=== PATIENT | female | born 1990 | race American Indian/Alaskan Native ===

== ENCOUNTER 2017-08-29 22:49 | Emergency (ER) | payer OTHER ==
[2017-08-30 00:32] LABS: Basophils % (Auto) 0.2 % (0.0-1.8); Eosinophils % (Auto) 0.8 % (0.0-4.3); Hematocrit 34.1 % (30.3-42.9); Mean Corpuscular HGB Conc 32 % (30-34); Mean Corpuscular Volume 79 fl (79-97); Platelet Count 204 K/mm3 (140-440); Red Blood Count 4.32 M/mm3 (3.65-5.03); Red Cell Distribution Width 13.7 % (13.2-15.2); White Blood Count 9.7 K/mm3 (4.5-11.0)
[2017-08-30 00:36] LABS: Mean Corpuscular Hemoglobin 26 pg (28-32)
[2017-08-30 00:48] LABS: Alanine Aminotransferase 8 units/L (7-56); Albumin 3.9 g/dL (3.9-5); Albumin/Globulin Ratio 1.2 %; Alkaline Phosphatase 74 units/L (35-129); Anion Gap 19 mmol/L; BUN/Creatinine Ratio 22; Blood Urea Nitrogen 11 mg/dL (7-17); Calcium 9.4 mg/dL (8.4-10.2); Carbon Dioxide 22 mmol/L (22-30); Chloride 100.4 mmol/L (98-107); Glucose 111 mg/dL (65-100); Lipase 43 units/L (13-60); Potassium 4.1 mmol/L (3.6-5.0); Sodium 137 mmol/L (137-145); Total Protein 7.2 g/dL (6.3-8.2)
--- NOTE | 2017-08-30 02:04 | Ultrasound Report ---
FINAL REPORT PROCEDURE: US OB > = 14 WEEKS FETUS TECHNIQUE: Real-time transabdominal sonography of the uterus, placenta, amniotic fluid, adnexa, and fetus was performed with image documentation. Measurements were obtained to determine age/size. M-mode Doppler was used to document heartbeat. CPT 60370 HISTORY: vaginal bleeding COMPARISON: No prior studies are available for comparison. FINDINGS: ADDITIONAL GESTATION: None. GENERAL: IUP: Single living intrauterine . Position: Cephalic Placental position: Anterior, without previa. Amniotic fluid volume: Normal. MATERNAL: Uterus: Within normal limits. Cervical length: 3.1 cm. Internal Os: Closed. FETUS: Heart rate and rhythm: 151 beats per minute anatomic survey: Not performed MEASUREMENTS: BPD: 3.8 centimeters correspond is 17 weeks 4 days HC: 13.6 centimeters correspond is 17 weeks and 1 day AC: 11.2 centimeters correspond is 17 weeks FL: 2.8 centimeters correspond 18 weeks Mean Gestational Age (composite criteria): 17 weeks and 3 days Ratio biometry: Normal. Estimated Weight: 195 grams. Interval growth: Appropriate. Estimated Due Date (earliest scan): 02/04/2018 IMPRESSION: Single intrauterine gestation at 7 weeks and 3 days. Estimated due date: 02/04/2018. Normal survey with appropriate growth.
[2017-08-30 03:46] VITALS: BP 105/68
--- NOTE | 2017-08-30 04:14 | Emergency Department Report ---
ED Female HPI - General Chief complaint: Vaginal Bleeding Stated complaint: BLOODY DISCHARGE 18 WKS Time Seen by Provider: 08/30/17 03:52 Source: patient Mode of arrival: Ambulatory Limitations: No Limitations - History of Present Illness Initial comments: 27 years old female 3 para 2 presented to the ER with a chief complaint all vaginal bleeding and lower abdominal pain for the last 4 days. Patient denied any nausea or vomiting. No fever. MD Complaint: vaginal bleeding, pelvic pain -: days(s) Radiation: suprapubic Severity: moderate Severity scale (0 -10): 4 Consistency: intermittent Are you Now?: Yes Associated Symptoms: vaginal bleeding - Related Data Allergies Allergy/AdvReac Type Severity Reaction Status Date / Time No Known Allergies Allergy Unverified 08/29/17 23:55 ED Review of Systems ROS: Stated complaint: BLOODY DISCHARGE 18 WKS Other details as noted in HPI Comment: All other systems reviewed and negative Constitutional: denies: chills, fever Respiratory: denies: cough, orthopnea, shortness of breath, SOB with exertion Cardiovascular: denies: chest pain, palpitations Gastrointestinal: abdominal pain. denies: nausea, vomiting, diarrhea, constipation, hematemesis, melena, hematochezia Neurological: denies: headache, weakness, numbness, paresthesias ED Past Medical Hx - Past Medical History Previous Medical History?: No - Social History Smoking Status: Never Smoker ED Physical Exam - General Limitations: No Limitations General appearance: alert, in no apparent distress - Head Head exam: Present: atraumatic, normocephalic - Eye Eye exam: Present: normal appearance, PERRL - ENT ENT exam: Present: normal exam - Neck Neck exam: Present: normal inspection, full ROM. Absent: tenderness, meningismus - Respiratory Respiratory exam: Present: normal lung sounds bilaterally. Absent: respiratory distress, wheezes, rales, rhonchi, stridor, chest wall tenderness, decreased breath sounds, prolonged expiratory - Cardiovascular Cardiovascular Exam: Present: regular rate, normal rhythm, normal heart sounds - GI/Abdominal GI/Abdominal exam: Present: soft, normal bowel sounds. Absent: distended, tenderness, guarding, rebound, rigid, organomegaly, mass, bruit, pulsatile mass , hernia - Extremities Exam Extremities exam: Present: normal inspection, full ROM, normal capillary refill - Back Exam Back exam: Present: normal inspection. Absent: tenderness, CVA tenderness (R), CVA tenderness (L) - Neurological Exam Neurological exam: Present: alert, oriented X3, CN II-XII intact, normal gait - Skin Skin exam: Present: warm, intact, normal color ED Course Vital Signs 08/29/17 08/30/17 08/30/17 23:45 00:03 03:46 Temperature 98.1 F 98.1 F 98.1 F Pulse Rate 85 76 70 Respiratory 18 18 17 Rate Blood Pressure 117/76 117/76 Blood Pressure 105/68 [Left] O2 Sat by Pulse 99 100 100 Oximetry ED Medical Decision Making - Lab Data Result diagrams: 08/30/17 00:12 08/30/17 00:12 Critical care attestation.: If time is entered above; I have spent that time in minutes in the direct care of this critically ill patient, excluding procedure time. ED Disposition Clinical Impression: Abnormal vaginal bleeding, Abdominal pain during Disposition: DC-01 TO HOME OR SELFCARE Is pt being admited?: No Condition: Stable Instructions: Abdominal Pain in (ED) Referrals: PRIMARY CARE, [Primary Care Provider] - 3-5 Days
[2017-08-30 04:17] LABS: Bilirubin,Urine NEG (Negative); Blood,Urine SM (Negative); Ketones,Urine NEG (Negative); Leukocyte Esterase,Urine MOD (Negative); Mucus,Urine FEW /HPF; Nitrite,Urine NEG (Negative); Protein,Urine <15 mg/dL mg/dL (Negative); Urobilinogen,Urine < 2.0 mg/dL (<2.0)
== END 2017-08-30 06:02 | disposition home or self-care (01) ==
LOC: ED 22:49
DX: O46.92 Antepartum hemorrhage, unspecified, second trimester (principal); Z3A.18 18 weeks gestation of pregnancy
CPT/HCPCS: 36415; 76805; 80053; 81001; 83690; 84702; 85025; 86850; 86900; 86901; 99284

== ENCOUNTER 2017-09-07 11:23 | Emergency (ER) | payer OTHER ==
[2017-09-07 12:22] VITALS: BP 119/63
--- NOTE | 2017-09-07 12:49 | Emergency Department Report ---
Chief Complaint: Dyspnea/Respdistress Stated Complaint: SOB/ANXIETY Time Seen by Provider: 09/07/17 12:42 - HPI History of Present Illness: 18 week patient presents to ED with c/o SOB, rapid breathing, CAUSEY and near syncope since this morning; denies vaginal bleeding but admits to some left sided abdominal pain - ROS Review of Systems: Negative except for those stated in HPI - Exam Vital Signs: Vital Signs 09/07/17 12:19 Temperature 98.5 F Pulse Rate 90 Respiratory 16 Rate Blood Pressure 119/63 O2 Sat by Pulse 99 Oximetry Physical Exam: NAD RRR CTAB Abdomen - mild TTP over LUQ and LLQ MSE screening note: Focused history and physical exam performed. Due to findings the following was ordered: labs, urine Patient to be seen by provider in Main ED ED Disposition for MSE Condition: Stable
[2017-09-07 13:30] LABS: Hematocrit 33.8 % (30.3-42.9); Hemoglobin 11.2 gm/dl (10.1-14.3); Mean Corpuscular HGB Conc 33 % (30-34); Mean Corpuscular Hemoglobin 26 pg (28-32); Mean Corpuscular Volume 79 fl (79-97); Platelet Count 179 K/mm3 (140-440); Red Blood Count 4.29 M/mm3 (3.65-5.03); Red Cell Distribution Width 13.8 % (13.2-15.2); White Blood Count 8.2 K/mm3 (4.5-11.0)
[2017-09-07 13:44] LABS: Alanine Aminotransferase 8 units/L (7-56); Albumin/Globulin Ratio 1.2 %; Alkaline Phosphatase 63 units/L (35-129); Anion Gap 18 mmol/L; BUN/Creatinine Ratio 16; Blood Urea Nitrogen 8 mg/dL (7-17); Calcium 9.1 mg/dL (8.4-10.2); Carbon Dioxide 23 mmol/L (22-30); Chloride 99.7 mmol/L (98-107); Glucose 79 mg/dL (65-100); Lipase 26 units/L (13-60); Sodium 137 mmol/L (137-145); Total Protein 7.4 g/dL (6.3-8.2)
[2017-09-07 13:45] LABS: Bacteria,Urine 1+ /HPF (Negative); Bilirubin,Urine NEG (Negative); Blood,Urine NEG (Negative); Ketones,Urine NEG (Negative); Leukocyte Esterase,Urine LG (Negative); Nitrite,Urine NEG (Negative); Protein,Urine <15 mg/dL mg/dL (Negative); Urobilinogen,Urine < 2.0 mg/dL (<2.0)
[2017-09-07] MEDS ORDERED: TYLENOL PO ONE (17:19)
== END 2017-09-07 21:45 | disposition left against medical advice (07) ==
LOC: ED 11:23
DX: R06.02 Shortness of breath (principal); Z53.21 Procedure and treatment not carried out due to patient leaving prior to being seen by health care provider
CPT/HCPCS: 36415; 80053; 81001; 83690; 84702; 85027